=== PATIENT | female | born 1980 | race Caucasian/White ===

== ENCOUNTER → 2021-11-22 10:05 | Outpatient (CLI) | payer OTHER, MEDICAID, SELFPAY ==
--- NOTE | 2021-11-22 | DI.US.S_ITS ---
PROCEDURE: US OB >= 14 WEEKS FETUS INDICATIONS: ANATOMY SCAN. OUTSIDE/PRIOR DATING DATA: Last menstrual period (LMP): 07/01/2021 LMP-based estimated date of delivery (CAM): 04/07/2022 First dating scan (date and location): 11/22/2021, formerly [facility] Estimated date of delivery (CAM) from first dating scan: 04/04/2022 TECHNIQUE: Real-time scanning was performed of the fetus, with image documentation and biometric measurements. COMPARISON: None. FINDINGS: General: A single living intrauterine gestation is present. Presentation: Transverse right Placenta: Anterior without previa Amniotic fluid index: 15.5 heart rate: 149 beats per minute Maternal cervical canal: 4.9 centimeters biometrics: Biparietal diameter: 4.8 centimeters Head circumference: 18.4 centimeters Abdominal circumference: 16.5 centimeters Femur length: 3.5 centimeters Clinically estimated gestational age: 21 weeks Composite gestational age from present scan: 21 weeks Estimated weight and percentile: 83rd percentile, 413 grams Anatomic survey: Neuro: Ventricles are non-dilated at less than 10 mm. Cisterna magna is normal at 3-11 mm. Cerebellum is normal in size and morphology. Nuchal skin fold: Normal at less than 6 mm between 14-21 weeks gestational age. Face: Nose and lips, nasal bone is seen on the profile view, however did mandible is not well seen. Spine: No evidence for spina bifida. Heart: 4-chambered heart is present, with normal ventricular outflow tracts. Diaphragm: Diaphragm is intact. Stomach: Left-sided stomach is present. Kidneys: No hydronephrosis. Normal is less than 5 mm in 2nd trimester, less than 7 mm in 3rd trimester. Cord: 3-vessel cord has orthotopic insertion. Bladder: Normal in size. Extremities: All 4 extremities identified. Maternal adnexal structures within normal limits. IMPRESSION: Single living intrauterine gestation at 21 weeks, with estimated weight at the 83rd percentile. The mandible is not well seen on profile view due to the flexed positioning of the head. Other parts of anatomic survey are normal. Consider repeat evaluation in 2-3 weeks. We strive to produce accurate, complete, and clear reports of imaging services. To assist us in improving patient care, this report was composed using standard report templates and voice recognition software. Therefore, it may contain abnormal punctuation, insertions and/or omissions. Occasional wrong-word or sound-alike substitutions may occur. Though we review the report and make efforts to correct it, we do recommend that the report be read carefully in proper context to recognize any text inaccuracies. Dictated by: Hunter Randall M.D. on 11/22/2021 at 12:45 Approved by: Hunter Randall M.D. on 11/22/2021 at 12:55
== END ==
PROVIDERS: Referring Provider Nurse Practitioner Obstetrics & Gynecology; Visit Provider Nurse Practitioner Obstetrics & Gynecology
DX: Z3A.21 21 weeks gestation of pregnancy; Z36.89 Encounter for other specified antenatal screening
CPT/HCPCS: 76811

== ENCOUNTER → 2022-01-03 10:39 | Outpatient (CLI) | payer OTHER, MEDICAID, SELFPAY ==
--- NOTE | 2022-01-03 | DI.US.S_ITS ---
PROCEDURE: US OB FOLLOW UP INDICATIONS: FOLLOW UP/ MANDIBLE NOT WELL SEEN OUTSIDE/PRIOR DATING DATA: Last menstrual period (LMP): 07/01/2021 LMP-based estimated date of delivery (CAM): 04/07/2022 First dating scan (date and location): 11/22/2021 Estimated date of delivery (CAM) from first dating scan: 04/04/2022 The calculations are made using the study generated CAM of 04/04/2022. TECHNIQUE: Real-time scanning was performed of the fetus, with image documentation. Endovaginal scanning: Not indicated COMPARISON: [facility], OB >= 14 WEEKS FETUS, 11/22/2021, 11:14. FINDINGS: A single living intrauterine gestation is present. Presentation: Breech/oblique. Placenta: Placental position is anterior, without previa. Amniotic fluid index: 13.5 cm, normal range is 5-24 cm. Single deepest vertical pocket is 5.9 cm. heart rate: 153 beats per minute. Maternal cervical canal: 4.1 cm long. Normal lower limit is 2.5 cm. Estimated gestational age from initial scan: 26 weeks, 4 days. Evaluation of the show focal file remain slightly limited due to position in. The mandible is grossly within normal limits. IMPRESSION: 1. Single live intrauterine gestation with fetus in breech/oblique transverse presentation. heart rate is 153 beats per minute. Normal amount of amniotic fluid. 2. facial profile remains suboptimally seen. mandible is grossly within normal limits. Dictated by: Binh Mcfarlane M.D. on 01/03/2022 at 14:35 Approved by: Binh Mcfarlane M.D. on 01/03/2022 at 14:38
== END ==
PROVIDERS: Referring Provider Nurse Practitioner Obstetrics & Gynecology; Visit Provider Nurse Practitioner Obstetrics & Gynecology
DX: Z34.92 Encounter for supervision of normal pregnancy, unspecified, second trimester (principal); Z3A.20 20 weeks gestation of pregnancy
CPT/HCPCS: 76816

== ENCOUNTER → 2022-03-06 10:39 | Outpatient (CLI) | payer OTHER, MEDICAID, SELFPAY ==
--- NOTE | 2022-03-06 | DI.US.S_ITS ---
PROCEDURE: US OB LIMITED INDICATIONS: GROWTH AND BPP OUTSIDE/PRIOR DATING DATA: Last menstrual period (LMP): 07/01/2021. LMP-based estimated date of delivery (CAM): 04/07/2022. First dating scan (date and location): 11/22/2021. Estimated date of delivery (CAM) from first dating scan: 04/04/2022. TECHNIQUE: Real-time scanning was performed of the fetus, with image documentation and biometric measurements. Endovaginal scanning: No COMPARISON: None. FINDINGS: General: A single living intrauterine gestation is present. Presentation: Vertex. Placenta: Placental position is anterior , without previa. Amniotic fluid index: 8.2 cm, normal range is 5-24 cm. Single deepest vertical pocket is 3 cm. heart rate: 123 beats per minute. Maternal cervical canal: Not well seen biometrics: Biparietal diameter: 90 mm; 36 weeks 3 days Head circumference: 323 mm; 36 weeks 3 days Abdominal circumference: 315 mm; 35 weeks 3 days Femur length: 69 mm; 35 weeks 3 days Estimated gestational age by initial OB ultrasound: 35 weeks 6 days Composite gestational age from present scan: 36 weeks 0 days Estimated weight and percentile: 2733 g, which is at the 44th percentile for gestational age Biophysical profile score: The fetus course 2 points for tone, 2 points for movement, 2 points for respiration, and 2 points for largest pocket of amniotic fluid. Other: Not applicable. IMPRESSION: 1. Single living intrauterine gestation with appropriate interval growth. 2. Normal biophysical profile score. We strive to produce accurate, complete, and clear reports of imaging services. To assist us in improving patient care, this report was composed using standard report templates and voice recognition software. Therefore, it may contain abnormal punctuation, insertions and/or omissions. Occasional wrong-word or sound-alike substitutions may occur. Though we review the report and make efforts to correct it, we do recommend that the report be read carefully in proper context to recognize any text inaccuracies. Dictated by: Trey Munguia M.D. on 03/06/2022 at 11:44 Transcribed by: MICHELET on 03/06/2022 at 11:47 Approved by: Trey Munguia M.D. on 03/06/2022 at 16:44
== END ==
PROVIDERS: Referring Provider Nurse Practitioner Obstetrics & Gynecology; Visit Provider Nurse Practitioner Obstetrics & Gynecology
DX: O24.415 Gestational diabetes mellitus in pregnancy, controlled by oral hypoglycemic drugs (principal); Z3A.36 36 weeks gestation of pregnancy
CPT/HCPCS: 76815; 76819

== ENCOUNTER → 2022-03-21 13:30 | Outpatient (CLI) | payer OTHER, MEDICAID, SELFPAY ==
--- NOTE | 2022-03-21 | DI.US.S_ITS ---
PROCEDURE: US OB LIMITED INDICATIONS: BPP OUTSIDE/PRIOR DATING DATA: Last menstrual period (LMP): 07/01/2021 LMP-based estimated date of delivery (CAM): 04/07/2022. First dating scan (date and location): 11/22/2021. Estimated date of delivery (CAM) from first dating scan: 04/04/2022. TECHNIQUE: Real-time scanning was performed of the fetus, with image documentation and biometric measurements. Biophysical profile was also obtained. COMPARISON: None. FINDINGS: General: A single living intrauterine gestation is present. Presentation: Vertex. Placenta: Placental position is anterior , without previa. Amniotic fluid index: 8.2 cm, normal range is 5-24 cm. Single deepest vertical pocket is 3 cm. heart rate: 123 beats per minute. Maternal cervical canal: Not well seen biometrics: Biparietal diameter: 36 weeks 3 days Head circumference: 36 weeks 3 Abdominal circumference: 35 weeks 3 days Femur length: 35 weeks 3 days Clinically estimated gestational age: 35 weeks 6 days Composite gestational age from present scan: 36 weeks Estimated weight and percentile: 2733 g; 44th percentile Biophysical profile: Tone: 2 points. Movement: 2 points. Respiration: 2 points. Largest pocket of fluid: 2 points. IMPRESSION: 1. Single living IUP redemonstrated and interval growth is normal. 2. Normal BPP. We strive to produce accurate, complete, and clear reports of imaging services. To assist us in improving patient care, this report was composed using standard report templates and voice recognition software. Therefore, it may contain abnormal punctuation, insertions and/or omissions. Occasional wrong-word or sound-alike substitutions may occur. Though we review the report and make efforts to correct it, we do recommend that the report be read carefully in proper context to recognize any text inaccuracies. Dictated by: Adriano PATIÑO Interpreted: Mara Wang MD on 03/21/2022 at 14:19 Transcribed by: DANIELA on 03/21/2022 at 14:21 Approved by: Mara Wang M.D. on 03/21/2022 at 15:38
== END ==
PROVIDERS: Referring Provider Nurse Practitioner Obstetrics & Gynecology; Visit Provider Nurse Practitioner Obstetrics & Gynecology
DX: O24.415 Gestational diabetes mellitus in pregnancy, controlled by oral hypoglycemic drugs (principal); Z3A.36 36 weeks gestation of pregnancy
CPT/HCPCS: 76815

== ENCOUNTER 2022-03-25 06:51 | Inpatient (IN) | payer OTHER, MEDICAID, SELFPAY ==
--- NOTE | 2022-03-25 07:37 | P.HPOB_ITS ---
OB HPI Date/Time Date of admission: 03/25/22 Date Patient Seen: 03/25/22 Time Patient Seen: 07:15 History of Present Condition Chief complaint: INDUCTION : 1 Para: 0 Estimated Date of Delivery: 03/30/22 Estimated Gestational Age (weeks): 39 Narrative: Carry Jay Ordoñez is a 42 year old female @39w2d by 11wk 5days US who presents to L&D for IOL for GDMA2. Accompanied by TATIANA Gómez. Patient's GDMA2 is managed with Metformin 2000mg QHS at bedtime for fasting BG levels only. Patient also has subclinical hypothyroidism, diagnosed at onset of care and managed on Levothyroxine 150mcg. A Porter balloon was placed in clinic on 03/24/22 at 09:00. The Porter balloon came out on 03/24 at 19:48. Written informed consent fopr IOL was obtained at that time. Patient denies any vaginal bleeding, cramping, leakage of fluid, or painful uterine contractions. Patient thinks she lost her mucus plug in the bath tub last night. Patient started care at 11 weeks, she has had 14 total care visits, and 47lb weight gain this . Weekly testing has been WNL. Indications Indication for induction OB: gestational diabetes (GDMA2 managed with metformin 2000mg) History of Present care: good care, initiated at week # (11), number of visits (14) and pounds weight gain (47) Ultrasounds: normal 1st trimester US Obstetrical complications: gestational diabetes (GMA2) Preadmission Labs Blood type: A (+) positive -: Antibody screen: negative, GBS status: positive, HBsAG: negative, HIV: negative and RPR/VDLR: negative -: Chlamydia screen: not detected and Gonorrhea screen: not detected -: Rubella: immune and Varicella: immune HCT: 38 HCAB: negative PAP: Normal Quad screen: Normal Cell-free DNA: Negative Narrative: GDM diagnosed by QID BG with consistently elevated fasting BGs Evaluation Evaluation Baseline heart rate: 135 Variability: Moderate (11-25) monitor accelerations: Present Monitor Decelerations: Absent Contraction Frequency (minutes): 6 Uterine Contraction Intensity: Moderate Category of Tracing: Reactive Status: Category l Dilation (cm): 4 Effacement (%): 90 Dilation: 3-4 cm Effacement: >/=80% station: -2 Position of cervix: posterior Consistency: soft Schulz score: 8 COUNTS INCLUDE 234 BEDS AT THE [facility] Medical History (Updated 03/25/22 @ 08:36 by Abby Izquierdo CNM) Advanced maternal age (AMA), 40 years or greater Gestational diabetes Hypothyroid Family History (Updated 03/25/22 @ 08:36 by Abby Izquierdo CNM) Father Hypertension Social History (Updated 03/25/22 @ 08:37 by Abby Izquierdo CNM) marital status: unmarried,living together household members: significant other lives independently: Yes housing: house occupational status: employed Smoking Status: Former smoker Tobacco: How many years used: 20 alcohol intake: former substance use type: does not use Meds Home Medications and Allergies Home Medications Medication Instructions Recorded Confirmed Type levothyroxine 150 mcg tablet mcg 03/25/22 History metformin 1,000 mg tablet 2,000 mg 03/25/22 History Allergies Allergy/AdvReac Type Severity Reaction Status Date / Time No Known Drug Allergies Allergy Unverified 03/25/22 08:40 Review of Systems Review of Systems ROS: Yes All systems reviewed with the patient and are negative except as othe rwise documented OB Exam Narrative Exam Narrative: VSS: BP: 133/77mmHg, T: 36.2C, P: 75bpm Resp Effort & Inspection: normal respiratory effort Auscultation: clear to auscultation bilaterally Cardio Rate: regular rate Rhythm: regular rhythm Heart Sounds: S1 normal and S2 normal Presentation: vertex Objective Labs Result Diagrams: 03/25/22 07:50 Assessment and Plan Assessment and Plan Assessment and Plan narrative: A: Term nullipara @ 39w2d S/p porter balloon mechanical induction, early labor IOL for GDMA2 Rh positive GBS prophylaxis indicated Category I heart rate tracing P: Admit, routine orders Labor augmentation with pitocin per protocol once system technologist allows Ampicillin per protocol Continuous heart rate monitoring Reassess in 4-6 hours or sooner PRN
[2022-03-25 08:10] LABS: Add Manual Diff / Slide Review NO; Basophils Absolute Auto 100 /uL (0-100); Basophils Percent Auto 0.5 % (0-2); Eosinophils Absolute Auto 200 /uL (0-450); Hematocrit 35.8 % (36-46); Lymphocytes Absolute Auto 2000 /uL (1100-4500); Lymphocytes Percent Auto 16.7 % (25-40); Mean Corpuscular HGB Conc 33.4 % (30-36); Mean Corpuscular Hemoglobin 29.6 PG (26-34); Mean Corpuscular Volume 88.4 fL (80-100); Monocytes Absolute Auto 900 /uL (0-900); Neutrophils Absolute Auto 8500 /uL (1500-7000); Neutrophils Percent Auto 72.8 % (50-75); Platelet Count 191 X10^3/uL (150-400); Red Blood Cell Count 4.05 X10^6/uL (4.0-5.2); Red Cell Distribution Width 13.6 % (11.6-14.8); White Blood Cell Count 11.7 X10^3/uL (4.5-11.0)
[2022-03-25 08:26] LABS: COVID19 -Nasal RAPID Negative (Negative)
[2022-03-25 09:36] VITALS: BP 133/77
[2022-03-25] MEDS: LACTATED RINGERS 1,000 ML 100 ML IV ×2 (14:19→23:51)
[2022-03-25] MEDS: OXYTOCIN PREMIX 30 UNIT/500 ML PLAST..BAG IV (14:20)
--- NOTE | 2022-03-25 19:06 | PM.OBPNLAB ---
Date/Time Date Patient Seen: 03/25/22 Time Patient Seen: 19:06 Pain Control Pain control: tolerating well Comments: Patient is up out of bed and actively moving around the room. Had several naps and meals throughout the day. Is coping well with mild cramping, states contractions are not strong at this point. Patient is in good spirits and accepts that contractions may take some time to ramp up and get stronger. VSS: BP: 139/75mmHg, 83bpm, T: 36.2C, SpO2: 97% Pelvic Exam Dilation (cm): 4 Effacement (%): 90 station: -2 Amniotic membrane status: Intact Contractions Date/Time contractions began: Contractions on admission were q 5-8 min Contractions on admission: irregular Monitor mode: External Pitocin rate (mU/min): 9 (Due to staffing shortage, pitocin was not started until 14:30) Contraction frequency (min): 4 Contraction duration (min): 1 Contraction pattern: Regular Contraction intensity: Moderate Status status: Category ll Heart Rate Baseline: 140 Monitor Accelerations: Present Monitor Decelerations: Prolonged (Single deceleration while bearing down during BM) Monitor Variability: Moderate Assessment and Plan Assessment: induction ongoing Comments: A: Term nullipara @ 39wk 2d Ongoing IOL GDMA2 GBS prophylaxis indicated Category II heart rate tracing, overall reassuring P: Continue pitocin titration per protocol Continuous heart rate monitoring Will begin GBS prophylaxis once more active Reassess in 4-6 hours or sooner PRN
[2022-03-25] MEDS: METFORMIN HCL 500 MG TABLET 2000 MG PO (19:56)
--- NOTE | 2022-03-25 22:59 | PM.OBPNLAB ---
Date/Time Date Patient Seen: 03/25/22 Time Patient Seen: 22:59 Pain Control Pain control: tolerating well Comments: Carry has been trying to get things going, balancing rest and upright movement. Agreeable to AROM. VS: BP 139/75, HR 85, T 36.2C Temporal Pelvic Exam Dilation (cm): 4 Effacement (%): 90 station: -2 Amniotic membrane status: Ruptured (AROM) Comments: moderate clear fluid Contractions Monitor mode: External Pitocin rate (mU/min): 15 Contraction frequency (min): 3 Contraction duration (min): 1 Contraction pattern: Regular Contraction intensity: Moderate Status status: Category l Heart Rate Baseline: 125 Monitor Accelerations: Present Monitor Decelerations: Absent Monitor Variability: Moderate Assessment and Plan Assessment: induction ongoing Plan: continuous present management
[2022-03-25] MEDS: AMPICILLIN 2,000 MG in SODIUM CHLORIDE 0.9% 100 ML 200 MG IV (23:11)
[2022-03-26] MEDS: OXYTOCIN PREMIX 30 UNIT/500 ML PLAST..BAG 200 UNIT IV (02:35)
[2022-03-26] MEDS: fentaNYL 100 MCG/2 ML INJ IV (03:09)
[2022-03-26] MEDS: TRANEXAMIC ACID 1,000 MG in SODIUM CHLORIDE 0.9% 100 ML 200 MG IV (03:47)
--- NOTE | 2022-03-26 03:56 | PM.OBPRVD ---
Events: Gestational Diabetes and Labor Induction Labor & Delivery Delivery date: 03/26/22 Intrapartal Events: None Cervical ripening method: per Daigle bulb protocol Induction method: per pitocin protocol Delivery augmentation: rupture of membranes Delivery monitor: external FHT and external uterine Route of delivery: L&D Laceration Description: Superficial (labial split) Quantitative Blood Loss: 500 Anesthesia Type: None Narrative: Carry's induction of labor for GDMA2 progressed rapidly after AROM to the second stage of labor. Patient started to feel the urge to push in the tub at 02:20 and was moved to the bed where she delivered a viable female infant at 02:24. CNM was called by RN after rapid delivery. No nuchal cord. scores were 9 and 9. Pitocin was given for AMTSL. Retained placenta despite steady cord traction and fundal massage. IV Fentanyl given for pain management. The [facility] was called for manual removal and placenta detached prior to her arrival in the room. Placenta was intact, 3 vessel cord. Vaginal and perineal inspection revealed a superficial split on the labia minora, no repair indicated. A 2cm inch vaginal hematoma at posterior vaginal floor did not change in size during 1hr 10 minute third stage with no indication for drainage. The uterus was firm, QBL 500mL. Cord blood was collected. Mom and baby nursing and doing well following delivery. Baby 1: gender: Female Presentation: vertex Placenta delivery description: Expressed Cord Vessel Description: 3 Vessels score (1 min): 9 score (5 min): 9 weight: 2.939 kg Plan for aftercare: Routine care
[2022-03-26] MEDS: KETOROLAC 30 MG/ML VIAL IV (04:55)
[2022-03-26] MEDS: LEVOTHYROXINE 88 MCG TABLET PO (05:48)
[2022-03-27] MEDS: IBUPROFEN 600 MG TABLET PO (05:35)
[2022-03-27] MEDS: LEVOTHYROXINE 88 MCG TABLET PO (05:35)
--- NOTE | 2022-03-27 10:04 | P.DS_ITS ---
Discharge Providers Provider Date of admission: 03/25/22 06:51 Discharge Date: 03/27/22 Consults: 03/27/22 02:55 Consult to Cad Intern Routine Comment: Discharge provider: Abby Izquierdo CNM Summary Hospital Course Date Patient Seen: 03/27/22 Time Patient Seen: 10:04 Diagnoses: O80 Hospital Course: PPD1: Stable s/p NSVB with intact perineum. Voiding, ambulating and breastfee ding independently, though baby has had low BGs and recommendation by Pediatrics has been to supplement with formula. Toleratineg a general diet. Pain is well controlled with PO medication- ibuprofen and Tylenol. Vaginal bleeding is light without clots. Feeling ready for discharge to home once baby's blood sugars are stable. Peripartum Data Infant Delivery Method: Natural Vaginal Laceration Description: None Episiotomy description: None Procedures: O80 complications: none 1: Gender: Female Disposition of : home Discharge Diagnosis (1) Hypothyroid: Status: Acute Problem Details: discharge on levothyroxine 88mcg (2) Encounter for full-term uncomplicated delivery: Status: Acute Problem Details: Routine PP course Status at Discharge Cognitive/behavioral status at discharge: oriented and calm Functional status at discharge: independent ambulation Overall status at discharge: patient is progressing back to baseline Time Spent with Patient Time attestation: Total time spent providing and/or coordinating discharge services: Time spent: Less than 30 minutes Objective Labs Result Diagrams: 03/25/22 07:50 Exam Vital Signs (past 8 hours): BP 124/76, HR 82bpm, RR 15/min, T 97.8F Temporal Other: Fundus firm @ U-1, lochia scant to moderate- no clots. Discharge Plan Discharge Plan Patient Disposition: Home Discharge orders & Medications Prescriptions: New ibuprofen 600 mg Tablet 600 mg PO Q6HR PRN (Reason: Pain, Mild (1-3)) 14 Days Qty: 60 0RF levothyroxine 88 mcg capsule 88 mcg PO DAILY Qty: 60 0RF Discontinued levothyroxine 150 mcg tablet Label Comments: Take 1 tablet By Mouth once a day metformin 1,000 mg tablet 2,000 mg Label Comments: Take 2 tablet by mouth at bedtime Follow up/Referrals: Abby Izquierdo CNM [Advanced Clinical Quality Manager] - (Follow-up by phone 04/08/22 @ 3:30pm Follow-up in office 05/06/21 @ 12:45pm) Diet/Activity/Treatments Diet: Regular Activity: pelvic rest x 6 weeks Skin/Wound/Dressing Care Report to your healthcare provider any signs of infection, such as:: chills, fever, increased pain, unusual drainage and unusual redness Visit Report/Discharge Packet Instructions: DI for Depression
[2022-03-27 13:52] VITALS: BP 125/61; PULSE 81; RESP 16; TEMP 36.4
== END 2022-03-27 15:28 | disposition home or self-care (01) | DRG 560 ==
PROVIDERS: Admitting Provider Nurse Practitioner Obstetrics & Gynecology; Referring Provider Nurse Practitioner Obstetrics & Gynecology; Visit Provider Nurse Practitioner Obstetrics & Gynecology
DX: O24.425 Gestational diabetes mellitus in childbirth, controlled by oral hypoglycemic drugs (principal); Z3A.39 39 weeks gestation of pregnancy; Z37.0 Single live birth; O99.284 Endocrine, nutritional and metabolic diseases complicating childbirth; E03.9 Hypothyroidism, unspecified; Z20.822 Contact with and (suspected) exposure to COVID-19; O99.824 Streptococcus B carrier state complicating childbirth
CPT/HCPCS: 36415; 59050; 85025; 86850; 86900; 86901; 87635; C9803; G0379; J0290; J1885; J2590; J3010

== ENCOUNTER → 2022-05-29 09:53 | Outpatient (CLI) | payer OTHER, MEDICAID, SELFPAY ==
[2022-05-29 10:58] LABS: Glucose Fasting 89 mg/dL (70-100)
[2022-05-29 12:05] LABS: Glucose 1 Hour 116 mg/dL (70-170)
[2022-05-29 12:13] LABS: Glucose Tol Interpretation INTERPRETATION
[2022-05-29 13:31] LABS: Glucose 2 Hour 66 mg/dL (70-140)
== END ==
PROVIDERS: Referring Provider Nurse Practitioner Obstetrics & Gynecology; Visit Provider Nurse Practitioner Obstetrics & Gynecology
DX: Z86.32 Personal history of gestational diabetes (principal)
CPT/HCPCS: 36415; 82951; 82952

== ENCOUNTER 2025-04-15 09:08 | Emergency (ER) | payer OTHER, SELFPAY ==
[2025-04-15 09:15] VITALS: BP 130/86; PULSE 84; PULSE 95; RESP 16; TEMP 36.7; O2SAT 99; BMI 27.4
[2025-04-15 09:20] VITALS: BP 130/86; PULSE 83; RESP 13; O2SAT 100
--- NOTE | 2025-04-15 09:22 | DI.RAD.S_ITS ---
PROCEDURE: XR CHEST 1V INDICATIONS: Chest Pain TECHNIQUE: One view of the chest was acquired. COMPARISON: None. FINDINGS: Surgical changes and devices: None. Lungs and pleura: Lungs are clear. No pleural effusions or pneumothorax. Mediastinum: Mediastinal contours appear normal. Heart size is normal. Bones and chest wall: No suspicious bony lesions. Overlying soft tissues appear unremarkable. IMPRESSION: No acute cardiopulmonary abnormality is seen. Dictated by: Aj Malone M.D. on 04/15/2025 at 8:53 Approved by: Aj Malone M.D. on 04/15/2025 at 8:54
--- NOTE | 2025-04-15 09:22 | EKG_ITS ---
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
[2025-04-15 09:30] VITALS: BP 123/76; PULSE 74; RESP 14; O2SAT 94
[2025-04-15 09:44] LABS: Add Manual Diff / Slide Review NO; Hematocrit 40.3 % (36-46); Hemoglobin 13.6 g/dL (12.0-16.0); Lymphocytes Absolute Auto 1700 /uL (1100-4500); Mean Corpuscular HGB Conc 33.7 % (30-36); Mean Corpuscular Hemoglobin 29.3 PG (26-34); Mean Corpuscular Volume 86.8 fL (80-100); Platelet Count 292 X10^3/uL (150-400)
--- NOTE | 2025-04-15 09:44 | ED.CHESTPAIN ---
HPI - Chest Pain General Chief Complaint: Chest Pain Stated Complaint: Chest pain/Dizzy spells Time Seen by Provider: 04/15/25 09:15 History of Present Illness HPI narrative: Patient is a 45-year-old female history of hypothyroid but no longer taking levothyroxine presenting today with heart palpitations. She reports that she has had palpitations every day for the last 2 weeks lasting up to 5 minutes. She gets short of breath with walking and feels palpitations during that time. No fever no chills. Reports that her dad recently had a heart attack. She is quite tearful upon arrival in anxious. She denies any fever chills or cough. Related Data Previous Rx's ?Medication ?Instructions ?Recorded levothyroxine 88 mcg capsule 88 mcg PO DAILY #60 caps 03/27/22 levothyroxine 100 mcg capsule 100 mcg PO DAILY #90 caps 04/15/25 Allergies Allergy/AdvReac Type Severity Reaction Status Date / Time No Known Drug Allergies Allergy Verified 04/15/25 09:36 Patient History Medical History Gestational diabetes Advanced maternal age (AMA), 40 years or greater Hypothyroid Family History Father Hypertension Social History marital status: unmarried,living together household members: significant other lives independently: Yes housing: house occupational status: employed Smoking Status: Former smoker Tobacco: How many years used: 20 alcohol intake: former substance use type: does not use Exam Initial Vital Signs Initial Vital Signs: Vital Signs Temperature 98.1 F 04/15/25 09:15 Pulse Rate 84 04/15/25 09:15 Respiratory Rate 16 04/15/25 09:15 Blood Pressure 130/86 04/15/25 09:15 Pulse Oximetry 99 04/15/25 09:15 Oxygen Delivery Method Room Air 04/15/25 09:15 GENERAL: Alert tearfu l 45-year-old female and in no acute distress. HEENT: Head atraumatic,EOMI, pupils reactive, face symmetric, moist mucous membranes CARDIOVASCULAR: Regular rate and rhythm without murmurs, rubs or gallops. RESPIRATORY: Breath sounds equal bilaterally, no wheezes rales or rhonchi. ABDOMEN: Soft, nontender. Normoactive bowel sounds all 4 quadrants. No guarding or rebound. EXTREMITIES: Normal range of motion, no clubbing or edema. Neurovascularly intact NEUROLOGICAL: Alert and oriented x4.Normal gait and speech. Cranial nerves II through XII grossly intact. SKIN: Warm, dry, no laceration, no petechiae, no rashes or lesions. Course Orders Ordered: ED Orders 04/15/25 09:22 XR chest 1V Stat EKG-12 Lead Stat 04/15/25 09:32 Complete Blood Count AUTO DIFF Stat Comprehensive Metabolic Panel Stat D Dimer Stat Lipase Stat Magnesium Stat NT-proBNP (BNP-Adult 18+) Stat PTT Partial Thromboplastin Santosh Stat Prothrombin Time INR Stat TSH [Thyroid Stimulating Hormone] Stat Troponin & CK Cardiac Panel Stat Discontinued Medications Aspirin (Aspirin 81 Mg Chew Tab) 324 mg PO NOW ONE Stop: 04/15/25 09:23 Vital Signs Vital signs: Vital Signs - 8 hr 04/15/25 09:15 Temperature 98.1 F Pulse Rate 84 Respiratory Rate 16 Blood Pressure 130/86 Pulse Oximetry 99 Oxygen Delivery Method Room Air MDM - Chest Pain Lab Data 04/15/25 09:32 04/15/25 09:32 Labs: Lab Results 04/15/25 Range/Units 09:32 WBC 8.7 (4.5-11.0) X10^3/uL RBC 4.64 (4.0-5.2) X10^6/uL Hgb 13.6 (12.0-16.0) g/dL Hct 40.3 (36-46) % MCV 86.8 (80-100) fL MCH 29.3 (26-34) PG MCHC 33.7 (30-36) % RDW 13.3 (11.6-14.8) % Plt Count 292 (150-400) X10^3/uL Neut % (Auto) 71.3 (50-75) % Lymph % (Auto) 19.5 L (25-40) % [facility] % (Auto) 6.0 (3-14) % Eos % (Auto) 2.5 (2-4) % Baso % (Auto) 0.7 (0-2) % Neut # (Auto) 6200 (8460-9899) /uL Lymph # (Auto) 1700 (5236-0554) /uL [facility] # (Auto) 500 (0-900) /uL Eos # (Auto) 200 (0-450) /uL Baso # (Auto) 100 (0-100) /uL PT 11.8 (9.4-12.5) SECONDS INR 1.0 (0.9-1.3) APTT 31 (25.1-36.5) SECONDS D-Dimer 344 (<500) ng/ml Sodium 138 (137-145) mmol/L Potassium 4.0 (3.4-5.1) mmol/L Chloride 102 (98-107) mmol/L Carbon Dioxide 28 (22-32) mmol/L BUN 13 (7-17) mg/dL Creatinine 0.90 (0.52-1.04) mg/dL Estimated GFR > 60 (>60) mL/min BUN/Creatinine Ratio 14.4 (6-22) Glucose 100 H (70-99) mg/dL Calcium 9.3 (8.4-10.2) mg/dL Magnesium 2.1 (1.6-2.3) mg/dL Total Bilirubin 1.1 (0.2-1.3) mg/dL AST 25 (14-36) IU/L ALT 17 (<35) IU/L Alkaline Phosphatase 47 (38-126) U/L Total Creatine Kinase 28 L (30-135) U/L Troponin I < 0.012 (0.01-0.034) ng/mL NT-Pro-B Natriuret Pep 30 (<125) pg/mL Total Protein 8.0 (6.3-8.2) g/dL Albumin 4.7 (3.5-5.0) g/dL Globulin 3.3 (1.7-4.1) g/dL Albumin/Globulin Ratio 1.4 (1.0-2.8) Lipase 78 (23-300) U/L TSH 25.1 H (0.47-4.68) uIU/mL Imaging Data Chest x-ray: Radiologist's Impression: PROCEDURE: XR CHEST 1V INDICATIONS: Chest Pain TECHNIQUE: One view of the chest was acquired. COMPARISON: None. FINDINGS: Surgical changes and devices: None. Lungs and pleura: Lungs are clear. No pleural effusions or pneumothorax. Mediastinum: Mediastinal contours appear normal. Heart size is normal. Bones and chest wall: No suspicious bony lesions. Overlying soft tissues appear unremarkable. IMPRESSION: No acute cardiopulmonary abnormality is seen. Dictated by: Aj Malone M.D. on 04/15/2025 at 8:53 ECG Data Attestation: I personally reviewed and interpreted this ECG as follows: Prior ECG tracings: not available for review Interpretation: Normal sinus rhythm rate 86 [place] interval 152 QRS [address] changes no T-wave inversions MDM Narrative Medical decision making narrative: MDM CC: Palpitations Complicating co-morbidities: Hypothyroid Data collected from: Patient Medical records reviewed: Delivery note from 03/25/2022 gestational diabetes Differential considered: Arrhythmia, PVCs pulmonary embolism anxiety Exam documented above, pertinent findings include: Tearful alert well-appearing 45-year-old female sounds are clear no respiratory distress Lab Test results independently reviewed as above. Pertinent findings: CBC within normal limits CMP within normal limits no ELIAS glucose 100 Bilirubin liver enzymes lipase within normal limits Troponin negative D-dimer 344 TSH 25 Independently reviewed EKG as above Sinus rhythm no ischemia Imaging studies independently reviewed: No acute cardiopulmonary process Consultations: none Treatments: None Re-evaluations: Patient remains in sinus rhythm on monitor Discussion: Patient 45-year-old female presenting today with palpitations. She is in sinus rhythm on the monitor blood work is overall reassuring she has a negative troponin normal electrolytes no anemia. TSH is noted to be quite elevated at 25. She does report that she had positive antibodies to Yovani's but weaned herself off her thyroid medication. We talked about restarting her medication. I am going to start her back on 100 mcg. She understands the need to have this re-evaluated monitored and checked regularly. This may or may not be contributing to her palpitations. Discharge Plan Departure Patient Disposition: Home Clinical Impression: Palpitation, Hypothyroid Instructions: Hypothyroidism, DI for Palpitations Activity Restrictions/Additional Instructions: *You have been diagnosed with palpitations *What to do: At this time please follow up with primary care he will need ZIO patch monitor. Be sure you are drinking fluids Please make sure you had your thyroid rechecked need to be monitored by primary care provider, you will need repeat labs in about 1 month *Continue to take medications as directed Levothyroxine 100 mcg daily *Follow up with your primary care provider in 2-3 days or call [phone] *Return to ER if you should have increasing chest pain palpitations dizziness lightheadedness or passing out or any new, worsening or concerning symptoms Prescriptions: New levothyroxine 100 mcg capsule 100 mcg PO DAILY Qty: 90 0RF No Action levothyroxine 88 mcg capsule 88 mcg PO DAILY Qty: 60 0RF Stand Alone Forms: Patient Portal/API
[2025-04-15 09:53] LABS: INR 1.0 (0.9-1.3); Prothrombin Time 11.8 SECONDS (9.4-12.5)
[2025-04-15 09:56] LABS: PTT Partial Thromboplastin Tim 31 SECONDS (25.1-36.5)
[2025-04-15 09:59] LABS: Alanine Aminotransferase 17 IU/L (<35); Albumin 4.7 g/dL (3.5-5.0); Albumin Globulin Ratio 1.4 (1.0-2.8); Alkaline Phosphatase 47 U/L (38-126); Blood Urea Nitrogen 13 mg/dL (7-17); Calcium 9.3 mg/dL (8.4-10.2); Carbon Dioxide 28 mmol/L (22-32); Chloride 102 mmol/L (98-107); Creatine Kinase 28 U/L (30-135); Estimated Glomerular Filt Rate > 60 mL/min (>60); Globulin 3.3 g/dL (1.7-4.1); Glucose 100 mg/dL (70-99); HEMOLYSIS < 15 (0-50); Lipase 78 U/L (23-300); Magnesium 2.1 mg/dL (1.6-2.3); Potassium 4.0 mmol/L (3.4-5.1); Sodium 138 mmol/L (137-145); Total Protein 8.0 g/dL (6.3-8.2)
[2025-04-15 10:00] VITALS: BP 117/72; PULSE 75; RESP 14
[2025-04-15 10:09] LABS: NT-proBNP (BNP-Adult 18+) 30 pg/mL (<125); Troponin I < 0.012 ng/mL (0.01-0.034)
[2025-04-15 10:30] VITALS: BP 121/64; PULSE 74; RESP 22
[2025-04-15 11:00] VITALS: BP 125/64; PULSE 69; RESP 10
[2025-04-15 11:01] LABS: Thyroid Stimulating Hormone 25.1 uIU/mL (0.47-4.68)
== END 2025-04-15 11:27 | disposition home or self-care (01) ==
PROVIDERS: Emergency Provider Emergency Medicine
DX: R00.2 Palpitations (principal); E03.9 Hypothyroidism, unspecified; R42 Dizziness and giddiness; R07.89 Other chest pain
CPT/HCPCS: 36415; 71045; 80053; 82550; 83690; 83735; 83880; 84443; 84484; 85025; 85379; 85610; 85730; 93005; 99283; 99284